=== PATIENT | female | born 1975 | race Caucasian/White ===

== ENCOUNTER → 2017-12-13 | Day surgery (SDC) | payer OTHER ==
[2017-12-09 18:29] VITALS: BMI 28.1
[~2017-12-13] MED LIST: BUPIVACAINE HCL/PF 0.5% (5MG/ML) 10 ML VIAL IJ ONE; BUPIVACAINE HCL/PF 0.5% (5MG/ML) 10 ML VIAL ONE; LIDOCAINE 1%/EPI 1:100000 (20 ML MULTI DOSE VIAL) IJ ONE; LIDOCAINE 1%/EPI 1:100000 (20 ML MULTI DOSE VIAL) ONE; LIDOCAINE HCL 2% (20ML MULTI-DOSE VIAL) NR ONE; LIDOCAINE HCL/PF 1% SDV 5ML VIAL ONE; MIDAZOLAM HCL 2 MG/2 ML SINGLE DOSE VIAL ONE; PROPOFOL 20 ML ONE
[2017-12-13 11:17] VITALS: BP 118/54; PULSE 65; TEMP 97.9
--- NOTE | 2017-12-13 11:20 | OP ---
DATE OF OPERATION: 12/13/2017 SURGICAL ATTENDING: Yojana Gutiérrez MD PREOPERATIVE DIAGNOSIS: Left posterior neck mass. POSTOPERATIVE DIAGNOSIS: Left posterior neck mass. ANESTHESIA: General endotracheal. PROCEDURE: Excision of left posterior neck mass. DESCRIPTION OF PROCEDURE: The patient was taken into the operating room and placed in the prone position. All pressure points were checked and protected. The patient was given nasal cannula oxygen and IV sedation. The neck was then prepped and draped in the usual sterile fashion. Local anesthesia was administered and a 3-cm horizontal incision was made and carried down through subcutaneous tissues. A fatty mass was identified immediately beneath the skin. This was excised with sharp dissection and sent to Pathology. The incision was then inspected and hemostasis was achieved. It was then closed in 2 layers. Dermabond was placed. The patient was then awakened and taken to recovery in stable condition. Dr. Gutiérrez, the attending surgeon, was present throughout the entire procedure. YOJANA GUTIÉRREZ M.D. [id number]
--- NOTE | 2017-12-16 18:52 | PATH ---
Surgical Pathology Report Patient Name: [facility]. Rec. #: [id number] /Age/Gender: 1975 (Age: 42) / F Account: [id number] Location: [facility] SURGICAL Taken: 12/13/2017 Received: 12/13/2017 Reported: 12/16/2017 Physicians: Ryan Madden M.D. Specimen(s) Received MASS OF LEFT POSTERIOR NECK MASS Clinical History Left posterior neck mass Final Diagnosis LEFT POSTERIOR NECK MASS, EXCISION: MATURE ADIPOSE TISSUE, CONSISTENT WITH LIPOMA. Electronically Signed Octavia Gutierrez M.D. Gross Description Received in formalin labeled "left posterior neck mass," is a 3.8 x 2.5 x 0.7 cm aggregate of multiple portions of yellow, lobulated adipose tissue. Sectioning reveals homogeneous yellow, smooth fat. No areas of hemorrhage or necrosis are identified. Tarper sections are submitted in one cassette. /12/13/2017 saudi12/13/2017
== END | disposition home or self-care (01) ==
LOC: JASU-SURG 05:09
PROVIDERS: ATTEND Surgery
PROC: 0JB50ZZ Excision of Left Neck Subcutaneous Tissue and Fascia, Open Approach (ICD-10-PCS; 2017-12-13)
PROC: 0JQ50ZZ Repair Left Neck Subcutaneous Tissue and Fascia, Open Approach (ICD-10-PCS; principal; 2017-12-13 09:00)
DX: D17.0 Benign lipomatous neoplasm of skin and subcutaneous tissue of head, face and neck (principal)
CPT/HCPCS: 36415; 84703; 88304-TC